=== PATIENT | male | born 1950 | race Hispanic/Latino ===

== ENCOUNTER 2019-10-27 18:05 | Emergency (ER) | payer OTHER ==
[2019-10-27 19:14] LABS: Absolute Lymphocytes (CBC) 1.7 K/uL (0.7-4.9); Basophils % 0.7 % (0-1.3); Hematocrit 46.4 % (39.6-49.0); Lymphocytes % 11.1 % (15.3-44.8)
[2019-10-27 19:43] LABS: AST/SGOT 236 U/L (15-37); Albumin 3.7 g/dL (3.4-5.0); Alkaline Phosphatase 587 U/L (45-117); Bicarbonate 25 mmol/L (21-32); Bilirubin Direct 5.2 mg/dL (0-0.2); Glucose Level 116 mg/dL (74-106); Magnesium 2.2 mg/dL (1.8-2.4); Potassium 3.4 mmol/L (3.5-5.1); Protein, Total 7.4 g/dL (6.4-8.2); Sodium Level 136 mmol/L (136-145); Troponin I < 0.02 ng/mL (0.0-0.045)
[2019-10-27 19:44] LABS: Bilirubin Total 7.7 mg/dL (0.2-1.0); Lipase 5999 U/L (73-393)
[2019-10-27 19:47] LABS: ALT/SGPT 339 U/L (12-78)
--- NOTE | 2019-10-27 19:47 | RAD REPORT ---
EXAM DESCRIPTION: RAD - Chest Single View - 10/27/2019 7:29 pm CLINICAL HISTORY: epigastric pain COMPARISON: Chest Pa And Lat (2 Views) dated 06/16/2018 TECHNIQUE: AP portable chest image was obtained 10/27/2019 7:29 pm . FINDINGS: Lung volumes are low. No peripheral mass or consolidation. Heart and vasculature are freeman l. No measurable pleural effusion and no pneumothorax. No acute bony abnormality seen. No acute aorti c findings suspected. IMPRESSION: No acute cardiopulmonary process. Lung parenchymal findings are similar to comparison when adjusting for the shallow inspiration.
[2019-10-27 19:48] LABS: BUN Blood Urea Nitrogen 14 mg/dL (7-18)
[2019-10-27 19:48] LABS: Urine Blood NEGATIVE (NEG); Urine Glucose NEGATIVE (NEG); Urine Protein NEGATIVE (NEG); Urine Specific Gravity <1.005 (1.005-1.030)
[2019-10-27] MEDS ORDERED: ONDANSETRON 4 MG/2 ML VIAL ONE (19:52)
[2019-10-27] MEDS ORDERED: PANTOPRAZOLE 40 MG INJ ONE (19:52)
[2019-10-27] MEDS ORDERED: NA CHLORIDE 0.9% 50 ML IV ONE (19:53)
[2019-10-27 19:57] LABS: Urine Bacteria <20 /HPF (NONE SEEN); Urine Culture Reflex Order NOT NEEDED; Urine RBC <5 /HPF (NONE SEEN)
[2019-10-27] MEDS ORDERED: NA CHLORIDE 0.9% 2,000 ML ONE (20:03)
[2019-10-27] MEDS ORDERED: CEFTRIAXONE/SWI 1gm 0 GM/0 ML SYR ONE (20:03)
--- NOTE | 2019-10-27 20:23 | RAD REPORT ---
EXAM DESCRIPTION: CT - Abdomen Pelvis W Contrast - 10/27/2019 7:59 pm CLINICAL HISTORY: epigastric abdomen pain COMPARISON: No comparisons TECHNIQUE: Biphasic, helical CT imaging of the abdomen and pelvis was performed following 100 ml non -ionic IV contrast. No oral contrast given. All CT scans are performed using dose optimization technique as appropriate and may include automated exposure control or mA/KV adjustment according to patient size. FINDINGS: No suspicious findings in the lung bases. Liver shows mild to moderate diffuse fatty infiltration. No focal liver lesion. Spleen and pancreas s how no suspicious findings. Cholecystectomy clips are present with no biliary tree dilatation. Symmetric renal function is seen with no hydronephrosis or suspicious renal mass. No pyelonephritis o r acute parenchymal process. A 20 mm cyst is present lower pole left kidney. No adrenal abnormalities . No urinary bladder abnormality seen. Patient has an enlarged prostate gland with irregular lobulated contour projecting into the bladder b ase. No gastric dilatation or gastric wall thickening. A few mildly prominent small bowel loops are presen t. . The appendix is normal. Sigmoid diverticulosis present without diverticulitis. No free air, angi e fluid or inflammatory stranding. No mass or bulky lymphadenopathy. Fat only left inguinal hernia i s present. No suspicious bony findings. IMPRESSION: No appendicitis or other emergent GI process. Patient has diverticulosis without diverti culitis. A few prominent small bowel loops are present and could reflect a nonspecific enteritis. Fatty infiltration of the liver. Status post cholecystectomy with no biliary tree or pancreatic abnormality. Enlarged lobulated prostate gland projecting into the bladder base. Correlation can be made with PSA values.
[2019-10-27] MEDS ORDERED: PIPER/TAZO/NS 3.375gm 3.375 GM/100 ML BAG ONE (21:12)
[2019-10-27 21:26] LABS: Protime INR 1.19
--- NOTE | 2019-10-27 21:32 | RAD REPORT ---
EXAM DESCRIPTION: US - Abdomen Exam Limited - 10/27/2019 8:37 pm CLINICAL HISTORY: epigastric/abdomen pain COMPARISON: Abdomen Pelvis W Contrast dated 10/27/2019 FINDINGS: Gallbladder is absent. No mass or abnormal fluid collection in the gallbladder fossa. No common duct stone or biliary tree dilatation identified. IMPRESSION: Gallbladder is absent. No biliary tree abnormality.
--- NOTE | 2019-10-27 22:54 | EDPHYS ---
Physician Documentation [facility] Name: Terry Morales Age: 68 yrs Sex: Male : 1950 Arrival Date: 10/27/2019 Time: 18:08 Bed 2 Private MD: Rishi [facility] ED Physician Alvarez Elizondo HPI: 10/27 18:55 This 68 yrs old Male presents to ER via Ambulatory with complaints of Fever, cp Nausea. 18:55 The patient presents with abdominal pain in the epigastric area. cp 18:55 Onset: The symptoms/episode began/occurred 2 week(s) ago, and became worse yesterday. cp Associated signs and symptoms: Pertinent positives: fever, nausea, Pertinent negatives: blood in stools, chest pain, constipation, diarrhea, shortness of breath, vomiting, vomiting blood. The symptoms are described as waxing/waning. Modifying factors: the symptoms are aggravated by pressure. Patient reports taking prescribed Z-pinky 2 weeks ago and noticing intermittent epigastric pain. Took all but 1 dose of Z-pinky and pain continued. Pain became worse yesterday. Had blood work drawn earlier this week and was told liver enzymes are elevated and was scheduled for US/CT next week. Historical: - Allergies: 18:23 No Known Allergies; aa5 - PMHx: 18:23 Hypertension; Hyperlipidemia; aa5 - PSHx: 18:23 back; aa5 - Immunization history:: Flu vaccine is up to date. - Coronavirus screen:: The patient has NOT traveled to [place], [place], or [place] in the past 14 days. The patient has NOT had contact with known/suspected case of Coronavirus?. - Social history:: Smoking status: Patient reports the use of cigarette tobacco products, smokes one pack cigarettes per day. - Ebola Screening: : No symptoms or risks identified at this time. ROS: 19:02 Constitutional: Negative for body aches, chills, fever, poor PO intake. cp 19:02 Eyes: Negative for injury, pain, redness, and discharge. cp 19:02 ENT: Negative for drainage from ear(s), ear pain, sore throat, difficulty swallowing, difficulty handling secretions. 19:02 Cardiovascular: Negative for chest pain, edema, palpitations. 19:02 Respiratory: Negative for cough, shortness of breath, wheezing. 19:02 Abdomen/GI: Positive for abdominal pain, nausea, of the epigastric area, Negative for vomiting, diarrhea, constipation, anorexia. 19:02 Back: Negative for pain at rest, pain with movement, radiated pain. 19:02 : Negative for urinary symptoms, testicular pain 19:02 Skin: Negative for cellulitis, rash. 19:02 Neuro: Negative for altered mental status, dizziness, headache, weakness. 19:02 All other systems are negative. Exam: 19:05 Constitutional: The patient appears in no acute distress, alert, awake, cp non-diaphoretic, non-toxic, well developed, well nourished. 19:05 Head/Face: Normocephalic, atraumatic. cp 19:05 Eyes: Periorbital structures: appear normal, Pupils: equal, round, and reactive to light and accomodation, Extraocular movements: intact throughout, Conjunctiva: normal, no exudate, no injection, Sclera: no appreciated abnormality, Lids and lashes: appear normal, bilaterally. 19:05 ENT: External ear(s): are unremarkable, Ear canal(s): are normal, clear, TM's: are normal, no evidence of bulging, no erythema, Nose: is normal, Mouth: Lips: moist, Oral mucosa: pink and intact, moist, Posterior pharynx: is normal, airway is patent, no erythema, no exudate. 19:05 Neck: ROM/movement: is normal, is supple, without pain, no range of motions limitations, no nuchal rigidity. 19:05 Chest/axilla: Inspection: normal, Palpation: is normal, no crepitus, no tenderness. 19:05 Cardiovascular: Rate: normal, Rhythm: regular, Heart sounds: murmur, not appreciated, Edema: is not appreciated, JVD: is not appreciated. 19:05 Respiratory: the patient does not display signs of respiratory distress, Respirations: normal, no use of accessory muscles, no retractions, no splinting, no tachypnea, labored breathing, is not present, Breath sounds: are clear throughout, no decreased breath sounds, no stridor, no wheezing. 19:05 Abdomen/GI: Inspection: abdomen appears normal, Bowel sounds: active, all quadrants, Palpation: soft, in all quadrants, moderate abdominal tenderness, in the epigastric area, rebound tenderness, is not appreciated, voluntary guarding, is elicited in the epigastric area. 19:05 Back: pain, is absent, ROM is normal. 19:05 Skin: Appearance: Color: jaundiced, cellulitis, is not appreciated, no rash present. 19:05 Neuro: Orientation: to person, place \T\ time. Mentation: is normal, Cerebellar function: is grossly normal, Motor: moves all fours, strength is normal, Sensation: is normal, Gait: is steady, at a normal pace, without difficulty. 20:17 ECG was reviewed by the Attending Physician. Vital Signs: 18:23 BP 109 / 65; Pulse 78; Resp 16 S; Temp 99.4(O); Pulse Ox 98% on R/A; Weight 89.81 kg aa5 (R); Height 5 ft. 10 in. (177.80 cm) (R); Pain 5/10; 19:00 BP 121 / 71; Pulse 66; Resp 16; Pulse Ox 99% on R/A; vc 19:43 BP 128 / 74; Pulse 67; Resp 18 S; Pulse Ox 97% on R/A; jd3 21:00 BP 118 / 69; Pulse 61; Resp 18; Pulse Ox 98% on R/A; vc 22:00 BP 124 / 69; Pulse 74; Resp 18; Pulse Ox 100% on R/A; vc 23:00 BP 133 / 70; Pulse 59; Resp 15; Temp 98.6(O); Pulse Ox 100% on R/A; vc 23:44 BP 127 / 66; Pulse 56; Resp 18 S; Pulse Ox 98% on R/A; jd3 18:23 Body Mass Index 28.41 (89.81 kg, 177.80 cm) aa5 MDM: 18:32 Patient medically screened. 22:30 Data reviewed: vital signs, nurses notes, lab test result(s), EKG, radiologic studies, cp CT scan, ultrasound, I have discussed the patient's presentation/case with the attending Emergency Department Physician;. 22:30 Test interpretation: by ED physician or midlevel provider: ECG, plain radiologic cp studies. 22:40 Response to treatment: the patient's symptoms have mildly improved after treatment. Physician consultation: was contacted at 22:41, regarding regarding transfer, to [facility]. patient's condition, DR Rodriguez, hospitalist. 10/27 18:49 Order name: Basic Metabolic Panel; Complete Time: 19:49 cp 10/27 20:42 Interpretation: Normal except: K 3.4; GLUC 116; GFR 62. cp 10/27 18:49 Order name: CBC with Diff; Complete Time: 19:49 cp 10/27 20:43 Interpretation: Normal except: WBC 15.0; JAMEY% 77.9; LYM% 11.1; NEUT A 11.7; MNA 1.5. cp 10/27 18:49 Order name: Creatinine for Radiology; Complete Time: 19:49 cp 10/27 18:49 Order name: Hepatic Function; Complete Time: 19:49 cp 10/27 20:43 Interpretation: Normal except: AST 236; ALK 587; BILID 5.2; GLOB 3.7; A/G 1.0; ALT 339; cp BILIT 7.7. 10/27 18:49 Order name: Lipase; Complete Time: 19:49 cp 10/27 20:43 Interpretation: Abnormal: LIP 5999. cp 10/27 18:49 Order name: Urine Microscopic Only; Complete Time: 20:42 cp 10/27 18:49 Order name: Influenza Screen (a \T\ B); Complete Time: 20:42 cp 10/27 18:49 Order name: Magnesium; Complete Time: 19:49 cp 10/27 18:49 Order name: Troponin I; Complete Time: 19:49 cp 10/27 19:20 Order name: Urine Dipstick--Ancillary (enter results); Complete Time: 20:42 sp 10/27 19:52 Order name: Lactate; Complete Time: 22:22 cp 10/27 19:52 Order name: Procalcitonin; Complete Time: 22:22 cp 10/27 19:52 Order name: Blood Culture Adult (2) cp 10/27 21:02 Order name: PT-INR; Complete Time: 22:22 cp 10/27 18:49 Order name: IV Saline Lock; Complete Time: 19:07 cp 10/27 18:49 Order name: Labs collected and sent; Complete Time: 19:07 cp 10/27 18:49 Order name: Urine Dipstick-Ancillary (obtain specimen); Complete Time: 19:07 cp 10/27 18:49 Order name: EKG; Complete Time: 18:50 cp 10/27 18:49 Order name: EKG - Nurse/Tech; Complete Time: 19:53 cp 10/27 19:05 Order name: XRAY Chest (1 view); Complete Time: 19:49 cp 10/27 19:05 Order name: CT Abd/Pelvis - IV Contrast Only; Complete Time: 20:42 cp 10/27 19:52 Order name: US Abdomen Limited; Complete Time: 22:22 cp 10/27 21:02 Order name: Ptt, Activated; Complete Time: 22:22 cp 10/27 22:42 Order name: NPO; Complete Time: 23:06 cp EC:17 Rate is 65 beats/min. Rhythm is regular. VT interval is prolonged at 204 msec. QRS cp interval is normal. QT interval is normal. T waves are Inverted in leads I, aVL. Interpreted by me. Reviewed by me. Administered Medications: 20:42 Drug: ProTONIX 40 mg Route: IVP; Site: right wrist; vc 21:02 Not Given (Physician Discretion): Rocephin - (cefTRIAXone) 1 grams IVPB once over 30 cp mins; (mix in 50 mL NS) 21:22 Drug: Zosyn 3.375 grams Route: IVPB; Infused Over: 60 mins; Site: right wrist; vc 21:23 Drug: NS 0.9% 1000 ml Route: IV; Rate: 1 bolus; Site: right antecubital; vc 22:45 Drug: NS 0.9% 1000 ml Route: IV; Rate: 1 bolus; Site: right antecubital; vc 10/28 00:04 Drug: Zofran 4 mg Route: IVP; Site: right wrist; vc 00:04 Drug: NS 0.9% 1000 ml Route: IV; Rate: 125 ml/hr; Site: right wrist; vc Disposition: 02:45 Co-signature as Attending Physician, Alvarez Elizondo MD I agree with the assessment and kdr plan of care. Disposition: 10/27/19 22:53 Transfer ordered to [facility]. Diagnosis are Acute pancreatitis, Liver disease, unspecified, Epigastric pain. - Reason for transfer: Higher level of care. - Accepting physician is DR Rodriguez. - Condition is Stable. - Problem is new. - Symptoms have improved. Signatures: Dispatcher [employer] EDWY Alvarez Elizondo MD MD kdr Steff Rico RN RN aa5 David Coulter PA PA María Chadwick RN RN vc Corrections: (The following items were deleted from the chart) 10/27 20:44 20:43 Normal except: WBC 15.0. cp cp 10/28 00:08 10/27 22:53 10/27/2019 22:53 Transfer ordered to [facility]. vc Diagnosis is Acute pancreatitis; Liver disease, unspecified; Epigastric pain. Reason for transfer: Higher level of care. Accepting physician is DR Rodriguez. Condition is Stable. Problem is new. Symptoms have improved. cp
--- NOTE | 2019-10-27 22:54 | ER ---
Nurse's Notes [facility] Name: Terry Morales Age: 68 yrs Sex: Male : 1950 Arrival Date: 10/27/2019 Time: 18:08 Bed 2 Private MD: Gregory Blackwell Diagnosis: Acute pancreatitis;Liver disease, unspecified;Epigastric pain Presentation: 10/27 18:20 Presenting complaint: Patient states: "about a week ago I had Pneumonia and I took a aa5 Z-pack". Pt reports nausea and fever up to 102.2 F today. Pt also reports discomfort to epigastric area. Pt's states "his doctor said his liver enzymes are elevated and he is scheduled for an ultrasound". Transition of care: patient was not received from another setting of care. Onset of symptoms was October 27, 2019. Risk Assessment: Do you want to hurt yourself or someone else? Patient reports no desire to harm self or others. Initial Sepsis Screen: Does the patient meet any 2 criteria? No. Patient's initial sepsis screen is negative. Does the patient have a suspected source of infection? No. Patient's initial sepsis screen is negative. Care prior to arrival: None. 18:20 Acuity: ELISA 3 aa5 18:20 Method Of Arrival: Ambulatory aa5 Triage Assessment: 18:33 General: Appears in no apparent distress. comfortable, Behavior is cooperative, bp appropriate for age, anxious. Pain: Denies pain. EENT: No deficits noted. Neuro: No deficits noted. Cardiovascular: Rhythm is sinus rhythm. Respiratory: No deficits noted. GI: Reports nausea. : No signs and/or symptoms were reported regarding the genitourinary system. Derm: No deficits noted. Musculoskeletal: No deficits noted. Historical: - Allergies: 18:23 No Known Allergies; aa5 - PMHx: 18:23 Hypertension; Hyperlipidemia; aa5 - PSHx: 18:23 back; aa5 - Immunization history:: Flu vaccine is up to date. - Coronavirus screen:: The patient has NOT traveled to [place], [place], or [place] in the past 14 days. The patient has NOT had contact with known/suspected case of Coronavirus?. - Social history:: Smoking status: Patient reports the use of cigarette tobacco products, smokes one pack cigarettes per day. - Ebola Screening: : No symptoms or risks identified at this time. Screenin:35 Abuse screen: Denies threats or abuse. Denies injuries from another. Nutritional bp screening: No deficits noted. Tuberculosis screening: No symptoms or risk factors identified. Fall Risk None identified. Assessment: 18:35 General: SEE TRIAGE NOTE. GI: Abdomen is non-distended. bp 19:35 Reassessment: Patient to CT via wheelchair. vc 20:00 General: Appears in no apparent distress. comfortable, Behavior is calm, cooperative. vc Pain: Complains of pain in epigastric area. Neuro: Level of Consciousness is awake, alert, obeys commands, Oriented to person, place, time, situation. Cardiovascular: Patient's skin is warm and dry. Respiratory: Airway is patent Respiratory effort is even, unlabored. : Urine is clear. EENT: No signs and/or symptoms were reported regarding the EENT system. EENT: Sclera/Cornea jaundice. Derm: Skin temperature is warm. Musculoskeletal: Circulation, motion, and sensation intact. Range of motion: intact in all extremities. 20:05 Reassessment: US at bedside. vc 20:42 Reassessment: Patient and/or family updated on plan of care and expected duration. Pain vc level reassessed. Patient is alert, oriented x 3, equal unlabored respirations, skin warm/dry/pink. Patients at bedside. 21:20 Reassessment: Patient resting comfortably. at bedside. vc 22:00 Reassessment: No changes from previously documented assessment. Patient and/or family vc updated on plan of care and expected duration. Pain level reassessed. 23:00 Reassessment: Patient and/or family updated on plan of care and expected duration. Pain vc level reassessed. Patient is alert, oriented x 3, equal unlabored respirations, skin warm/dry/pink. Patient denies pain at this time. 10/28 00:00 Reassessment: Patient and/or family updated on plan of care and expected duration. Pain vc level reassessed. Patient is alert, oriented x 3, equal unlabored respirations, skin warm/dry/pink. at bedside. Waiting on EMS for transfer. Patient denies pain at this time. Vital Signs: 10/27 18:23 BP 109 / 65; Pulse 78; Resp 16 S; Temp 99.4(O); Pulse Ox 98% on R/A; Weight 89.81 kg aa5 (R); Height 5 ft. 10 in. (177.80 cm) (R); Pain 5/10; 19:00 BP 121 / 71; Pulse 66; Resp 16; Pulse Ox 99% on R/A; vc 19:43 BP 128 / 74; Pulse 67; Resp 18 S; Pulse Ox 97% on R/A; jd3 21:00 BP 118 / 69; Pulse 61; Resp 18; Pulse Ox 98% on R/A; vc 22:00 BP 124 / 69; Pulse 74; Resp 18; Pulse Ox 100% on R/A; vc 23:00 BP 133 / 70; Pulse 59; Resp 15; Temp 98.6(O); Pulse Ox 100% on R/A; vc 23:44 BP 127 / 66; Pulse 56; Resp 18 S; Pulse Ox 98% on R/A; jd3 18:23 Body Mass Index 28.41 (89.81 kg, 177.80 cm) aa5 ED Course: 18:08 Patient arrived in ED. as 18:09 Gregory Blackwell DO is Private Physician. as 18:12 Alvarez Elizondo MD is Attending Physician. kdr 18:22 Triage completed. aa5 18:22 Arm band placed on. aa5 18:29 David Coulter PA is PHCP. cp 18:32 Isai Hernandez, SAL is Primary Nurse. bp 18:35 Patient has correct armband on for positive identification. Bed in low position. Call bp light in reach. Side rails up X2. Adult w/ patient. 19:05 Inserted saline lock: 20 gauge in right forearm, using aseptic technique. Blood bp collected. 19:29 XRAY Chest (1 view) In Process Unspecified. EDMS 19:53 EKG done, by ED staff, reviewed by David WARD. jd3 20:00 CT Abd/Pelvis - IV Contrast Only In Process Unspecified. EDMS 20:38 US Abdomen Limited In Process Unspecified. EDMS 10/28 00:05 No provider procedures requiring assistance completed. Patient transferred, IV remains vc in place. Administered Medications: 10/27 20:42 Drug: ProTONIX 40 mg Route: IVP; Site: right wrist; vc 21:02 Not Given (Physician Discretion): Rocephin - (cefTRIAXone) 1 grams IVPB once over 30 cp mins; (mix in 50 mL NS) 21:22 Drug: Zosyn 3.375 grams Route: IVPB; Infused Over: 60 mins; Site: right wrist; vc 21:23 Drug: NS 0.9% 1000 ml Route: IV; Rate: 1 bolus; Site: right antecubital; vc 22:45 Drug: NS 0.9% 1000 ml Route: IV; Rate: 1 bolus; Site: right antecubital; vc 10/28 00:04 Drug: Zofran 4 mg Route: IVP; Site: right wrist; vc 00:04 Drug: NS 0.9% 1000 ml Route: IV; Rate: 125 ml/hr; Site: right wrist; vc Outcome: 10/27 22:53 ER care complete, transfer ordered by . cp 10/28 00:05 Transferred by ground EMS to [facility]. vc Condition: good Instructed on the need for admit. 00:08 Patient left the ED. vc Signatures: Dispatcher [employer] EDMS Alvarez Elizondo MD MD kdr Martinez, Amelia as Calderon, Audri RN RN aa5 David Coulter PA PA cp Davies, Jonathon, RN RN jIsai Pedraza RN RN María Farr RN RN vc Corrections: (The following items were deleted from the chart) 10/27 18:25 18:20 Presenting complaint: Patient states: "about a week ago I had Pneumonia and I aa5 took a Z-pack". Pt reports nausea and fever today. Pt also reports discomfort to epigastric area. aa5 10/28 02:58 00:05 General: Appears in no apparent distress. comfortable, Behavior is calm, vc cooperative, vc 02:58 00:05 Pain: Complains of pain in epigastric area vc vc 02:58 00:05 Neuro: Level of Consciousness is awake, alert, obeys commands, Oriented to vc person, place, time, situation, vc 02:58 00:05 Cardiovascular: Patient's skin is warm and dry. vc vc 02:58 00:05 Respiratory: Airway is patent Respiratory effort is even, unlabored, vc vc 02:58 00:05 : Urine is clear, vc vc 02:58 00:05 EENT: No signs and/or symptoms were reported regarding the EENT system. vc vc 02:58 00:05 Derm: Skin temperature is warm vc vc 02:58 00:05 Musculoskeletal: Circulation, motion, and sensation intact. Range of motion: vc intact in all extremities, vc 02:58 00:05 EENT: Sclera/Cornea jaundice. vc vc
[2019-10-27] MEDS ORDERED: NA CHLORIDE 0.9% 1,000 ML ONE (23:36)
[2019-10-28 00:52] VITALS: TEMP 99.4
[2019-10-28 00:55] VITALS: BP 127/66; O2SAT 98
--- NOTE | 2019-10-29 09:43 | EKG ---
Test Date: 2019-10-27 Test Time: 19:52:21 Soil Engineer: ANGEL MEASUREMENT RESULTS: Intervals: Rate: 65 GA: 204 QRSD: 152 QT: 452 QTc: 470 Penn Laird: P: 44 GA: 204 QRS: -17 T: 121 INTERPRETIVE STATEMENTS: Normal sinus rhythm Left bundle branch block Abnormal ECG Compared to ECG 06/16/2018 11:43:52 Sinus bradycardia no longer present Electronically Signed On 10-29-19 09:42:50 [employer] by Karlos Carrion
== END 2019-10-28 00:08 | disposition short-term general hospital (02) ==
LOC: ER 18:05
DX: K85.90 Acute pancreatitis without necrosis or infection, unspecified (principal); K76.9 Liver disease, unspecified; F17.210 Nicotine dependence, cigarettes, uncomplicated; I10 Essential (primary) hypertension
CPT/HCPCS: 93005; 87040 ×2; 85025; 80048; 36415; 83735; 85610; 80076; 83605; 85730; 84484; 83690; 84145; 87804 ×2; 74177; 71045; 76705; 96375; 96374; 99285; Q9967; C9113; J2543; J7030 ×2; J2405; 81003; 81015; J0696